=== PATIENT | female | born 1980 | race Caucasian/White ===

== ENCOUNTER → 2018-03-08 | Outpatient (CLI) | payer OTHER ==
[2018-03-08 10:12] LABS: ABSOLUTE EOSINOPHILS 0.3 thou/uL (0.0-0.7); ABSOLUTE LYMPHOCYTES 2.4 thou/uL (0.8-5.3); ABSOLUTE MONOCYTES 0.6 thou/uL (0.0-1.2); ABSOLUTE NEUTROPHILS 4.6 thou/uL (1.6-8.1); BASOPHILS 0.5 %; EOSINOPHILS 3.3 %; HEMATOCRIT 37.3 % (37.0-47.0); HEMOGLOBIN 12.6 gm/dL (12.0-15.0); LYMPHOCYTES 30.7 %; MCH 30.1 pg (26.0-34.0); MCHC 33.7 g/dL (28.0-37.0); MCV 89.3 fL (80.0-100.0); MONOCYTES 7.3 %; MPV 7.7 fl. (7.2-11.1); NUCLEATED RBCS 0 /100WBC; PLATELET COUNT* 242 thou/uL (150-400); POLYS 58.2 %; RBC 4.18 mil/uL (4.20-5.00); RDW-CV 12.6 % (10.5-14.5); WBC 7.9 thou/uL (4.0-11.0)
[2018-03-08 10:24] LABS: ALBUMIN 3.3 g/dL (3.4-5.0); CALCIUM 8.1 mg/dL (8.5-10.1); CREATININE 0.8 mg/dL (0.6-1.3); POTASSIUM 3.8 mmol/L (3.5-5.1); TOTAL BILIRUBIN 0.3 mg/dL (<0.1-1.0); TOTAL PROTEIN 6.9 g/dL (6.4-8.2)
[2018-03-08 10:25] LABS: AMP/METHAMP Negative (Negative); BARBITURATES Negative (Negative); BENZODIAZEPINES Negative (Negative); COCAINE Negative (Negative); METHADONE Negative (Negative); OPIATES POSITIVE (Negative); PCP Negative (Negative); THC Negative (Negative)
== END ==
LOC: M.MRI 08:06
DX: Z51.81 Encounter for therapeutic drug level monitoring (principal); G45.9 Transient cerebral ischemic attack, unspecified; R53.1 Weakness; G62.9 Polyneuropathy, unspecified

== ENCOUNTER → 2018-04-17 | Outpatient (CLI) | payer OTHER ==
[2018-04-17 08:04] LABS: PROTIME 9.8 Seconds (9.20-11.50)
== END ==
LOC: M.LAB 07:29
DX: G93.2 Benign intracranial hypertension (principal)

== ENCOUNTER 2018-09-14 12:43 | Emergency (ER) | payer OTHER ==
[~2018-09-14] VITALS: Ht 160 cm; Wt 124.7 kg
[2018-09-14] MEDS ORDERED: CYMBALTA60 MG PO (13:11)
[2018-09-14] MEDS ORDERED: CELEBREX 200 M200 M1 PO (13:11)
[2018-09-14] MEDS ORDERED: NORTRIPTYLINE H50 M3 PO (13:11)
[2018-09-14] MEDS ORDERED: SYNTHROID50 MCG PO (13:11)
[2018-09-14] MEDS ORDERED: LASIX 40 MG TAB40 M2 PO (13:12)
[2018-09-14] MEDS ORDERED: LYRICA 50 MG50 MG PO (13:12)
[2018-09-14] MEDS ORDERED: ZANAFLEX4 MG PO (13:12)
[2018-09-14] MEDS ORDERED: ZOFRAN ODT4 MG PO (13:13)
[2018-09-14] MEDS ORDERED: PROPRANOLOL 4040 MG PO (13:13)
[2018-09-14] MEDS ORDERED: ROBAXIN 750 MG750 M1 PO (13:13)
[2018-09-14] MEDS ORDERED: KLOR-CON 1010 MEQ PO (13:13)
[2018-09-14] MEDS ORDERED: PROVIGIL 200 M200 M1 PO (13:14)
[2018-09-14] MEDS ORDERED: HYDROCODON-ACE1 EA12 PO (13:15)
[2018-09-14] MEDS ORDERED: IMITREX 25 MG T25 M1 PO (13:16)
[2018-09-14 14:23] LABS: HEMATOCRIT 40.2 % (37.0-47.0); HEMOGLOBIN 13.2 gm/dL (12.0-15.0); MCH 29.1 pg (26.0-34.0); MCHC 32.7 g/dL (28.0-37.0); MPV 8.3 fl. (7.2-11.1); NUCLEATED RBCS 0 /100WBC; PLATELET COUNT* 238 thou/uL (150-400); RBC 4.52 mil/uL (4.20-5.00); RDW-CV 12.7 % (10.5-14.5); WBC 5.8 thou/uL (4.0-11.0)
[2018-09-14 14:32] LABS: ANION GAP 7 mmol/L (7-16); BUN 18 mg/dL (7-18); CALCIUM 8.1 mg/dL (8.5-10.1); CHLORIDE 101 mmol/L (98-107); CO2 29 mmol/L (21-32); CREATININE 0.7 mg/dL (0.6-1.3); GLUCOSE 102 mg/dL (70-99); POTASSIUM 3.9 mmol/L (3.5-5.1); SODIUM 137 mmol/L (136-145)
[2018-09-14 14:37] LABS: URINE BILIRUBIN NEGATIVE (Negative); URINE BLOOD NEGATIVE (Negative); URINE CLARITY CLEAR; URINE COLOR YELLOW; URINE GLUCOSE-RANDOM NEGATIVE (Negative); URINE KETONES NEGATIVE (Negative); URINE LEUKOCYTES-REFLEX TRACE (Negative); URINE NITRITE-REFLEX NEGATIVE (Negative); URINE PROTEIN NEGATIVE (Negative); URINE SPECIFIC GRAVITY >= 1.030 (1.005-1.030); URINE UROBILINOGEN 0.2 E.U./dl (0.2-1.0)
[2018-09-14 14:40] LABS: BACTERIA-REFLEX None Seen /HPF (None Seen); CASTS None Seen /LPF (None Seen); CRYSTALS None Seen /LPF (None Seen); MUCUS >6 Heavy strn/LPF (None Seen); SQUAMOUS 0-3 Few /LPF (0-3); URINE RBC None Seen /HPF (0-2); URINE WBC-REFLEX None Seen /HPF (0-5)
[2018-09-14 14:45] LABS: ABSOLUTE LYMPHOCYTES 0.4 thou/uL (0.8-5.3); ABSOLUTE MONOCYTES 0.1 thou/uL (0.0-1.2); ABSOLUTE NEUTROPHILS 5.3 thou/uL (1.6-8.1); PLATELET ESTIMATE ADEQUATE
[2018-09-14 14:47] LABS: ALBUMIN 3.4 g/dL (3.4-5.0); ALKALINE PHOSPHATASE 122 U/L (46-116); LIPASE 83 U/L (73-393); SGOT 36 U/L (15-37); SGPT 33 U/L (30-65); TOTAL BILIRUBIN 0.4 mg/dL (<0.1-1.0); TOTAL PROTEIN 7.2 g/dL (6.4-8.2); TROPONIN-I LEVEL <0.06 ng/mL (<0.06)
[2018-09-14 17:28] VITALS: BP 113/59
--- NOTE | 2018-09-16 15:32 | EKG ---
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: ROBERT : 1980 Requested By: Merlyn Silva Order Number: [id number] MD: Carrington Marcus Measurements Intervals [place] Rate: 83 P: 27 IA: 150 QRS: 18 QRSD: 94 T: -1 QT: 363 QTc: 427 Interpretive Statements Sinus rhythm Borderline T wave abnormalities No previous ECG available for comparison Electronically Signed On 09-16-2018 15:32:43 OVEN DRIER TENDER by Carrington Marcus [email or web address] <ELECTRONICALLY SIGNED> By: Carrington Marcus MD, [facility] 09/16/18 1532 1358 1358 Carrington Marcus MD, FACC /EPI
== END 2018-09-14 17:30 | disposition home or self-care (01) ==
LOC: M.ERS 12:43
PROVIDERS: Personal Emergency Response Attendant
DX: E86.0 Dehydration (principal); R20.2 Paresthesia of skin; M32.9 Systemic lupus erythematosus, unspecified; M06.9 Rheumatoid arthritis, unspecified; E03.9 Hypothyroidism, unspecified; I10 Essential (primary) hypertension; M79.7 Fibromyalgia; G89.29 Other chronic pain; F41.9 Anxiety disorder, unspecified; G43.909 Migraine, unspecified, not intractable, without status migrainosus; F32.9 Major depressive disorder, single episode, unspecified; Z88.1 Allergy status to other antibiotic agents; Z88.5 Allergy status to narcotic agent; Z86.73 Personal history of transient ischemic attack (TIA), and cerebral infarction without residual deficits

== ENCOUNTER 2020-05-21 11:55 | Emergency (ER) | payer OTHER ==
[~2020-05-21] VITALS: Ht 154.9 cm; Wt 127.0 kg
[~2020-05-21 11:55] MED LIST: CELEBREX 200 M200 M1 PO; CYMBALTA60 MG PO; HYDROCODON-ACE1 EA12 PO; IMITREX 25 MG T25 M1 PO; KLOR-CON 1010 MEQ PO; LASIX 40 MG TAB40 M2 PO; LYRICA 50 MG50 MG PO; NORTRIPTYLINE H50 M3 PO; PROPRANOLOL 4040 MG PO; PROVIGIL 200 M200 M1 PO; ROBAXIN 750 MG750 M1 PO; SYNTHROID50 MCG PO; ZANAFLEX4 MG PO; ZOFRAN ODT4 MG PO
[2020-05-21 13:00] VITALS: BP 163/91
== END 2020-05-21 13:00 | disposition home or self-care (01) ==
LOC: M.ERS 11:55
DX: J06.9 Acute upper respiratory infection, unspecified (principal); I10 Essential (primary) hypertension; E03.9 Hypothyroidism, unspecified; G43.909 Migraine, unspecified, not intractable, without status migrainosus; G89.29 Other chronic pain; M79.7 Fibromyalgia; M06.9 Rheumatoid arthritis, unspecified; F41.9 Anxiety disorder, unspecified; Z20.828 Contact with and (suspected) exposure to other viral communicable diseases; Z88.1 Allergy status to other antibiotic agents; Z88.6 Allergy status to analgesic agent

== ENCOUNTER 2020-10-14 14:03 | Emergency (ER) | payer OTHER ==
[~2020-10-14] VITALS: Ht 154.9 cm; Wt 124.7 kg
[2020-10-14 14:16] VITALS: BP 170/103
[2020-10-14 14:38] LABS: INFLUENZA A ANTIGEN Negative (Negative); INFLUENZA B ANTIGEN Negative (Negative)
== END 2020-10-14 15:25 | disposition home or self-care (01) ==
LOC: M.ERS 14:03
PROVIDERS: Nurse Practitioner Family
DX: B34.9 Viral infection, unspecified (principal); Z20.828 Contact with and (suspected) exposure to other viral communicable diseases; I10 Essential (primary) hypertension; E03.9 Hypothyroidism, unspecified; G89.29 Other chronic pain; G43.909 Migraine, unspecified, not intractable, without status migrainosus; Z88.5 Allergy status to narcotic agent; Z88.8 Allergy status to other drugs, medicaments and biological substances; Z79.899 Other long term (current) drug therapy; Z86.73 Personal history of transient ischemic attack (TIA), and cerebral infarction without residual deficits

== ENCOUNTER 2020-10-16 20:50 | Emergency (ER) | payer OTHER ==
[~2020-10-16] VITALS: Ht 154.9 cm; Wt 124.7 kg
[2020-10-16] MEDS ORDERED: ATIVAN1 M1 PO (21:06)
[2020-10-16 21:30] LABS: ABSOLUTE BASOPHILS 0.1 thou/uL (0.0-0.2); ABSOLUTE EOSINOPHILS 0.2 thou/uL (0.0-0.7); ABSOLUTE LYMPHOCYTES 2.8 thou/uL (0.8-5.3); ABSOLUTE MONOCYTES 0.8 thou/uL (0.0-1.2); ABSOLUTE NEUTROPHILS 10.2 thou/uL (1.6-8.1); BASOPHILS 0.5 %; EOSINOPHILS 1.6 %; HEMATOCRIT 42.1 % (37.0-47.0); HEMOGLOBIN 14.4 gm/dL (12.0-15.0); MCH 30.3 pg (26.0-34.0); MCHC 34.3 g/dL (28.0-37.0); MCV 88.5 fL (80.0-100.0); MONOCYTES 5.4 %; MPV 7.7 fl. (7.2-11.1); NUCLEATED RBCS 0 /100WBC; PLATELET COUNT* 324 thou/uL (150-400); POLYS 72.5 %; RBC 4.75 mil/uL (4.20-5.00); RDW-CV 12.7 % (10.5-14.5)
[2020-10-16 21:42] LABS: CALCIUM 10.1 mg/dL (8.5-10.1); CREATININE 1.2 mg/dL (0.6-1.3); POTASSIUM 3.7 mmol/L (3.5-5.1)
[2020-10-16 21:53] LABS: MAGNESIUM 1.9 mg/dL (1.8-2.4)
[2020-10-16] MEDS ORDERED: METFORMIN HCL500 MG PO (22:31)
[2020-10-16] MEDS ORDERED: INDERAL60 MG PO (22:31)
[2020-10-16 22:38] VITALS: BP 115/65
--- NOTE | 2020-10-17 09:42 | EKG ---
[place] [address] ELECTROCARDIOGRAM REPORT Name: POSEYDANIELE IRINA 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: : 1980 Requested By: Cyndy Boland Order Number: [id number] MD: Sabino Schaffer Measurements Intervals [place] Rate: 124 P: 51 DE: 125 QRS: 44 QRSD: 91 T: 30 QT: 447 QTc: 643 Interpretive Statements Sinus tachycardia nonspecific t wave changes Prolonged QT interval Compared to ECG 09/14/2018 13:58:43 Prolonged QT interval now present Sinus rhythm no longer present Electronically Signed On 10-17-2020 9:42:15 CONFLICTS ANALYST by Sabino Schaffer [email or web address] <ELECTRONICALLY SIGNED> By: Sabino Schaffer MD, FAC 10/17/20 0942 11 11 Sabino Schaffer MD, [facility] /EPI
== END 2020-10-16 22:39 | disposition home or self-care (01) ==
LOC: M.ERS 20:50
PROVIDERS: Emergency Medicine
DX: R00.0 Tachycardia, unspecified (principal); I10 Essential (primary) hypertension; R60.0 Localized edema; E03.9 Hypothyroidism, unspecified; M06.9 Rheumatoid arthritis, unspecified; F41.9 Anxiety disorder, unspecified; G43.909 Migraine, unspecified, not intractable, without status migrainosus; Z79.899 Other long term (current) drug therapy; Z88.5 Allergy status to narcotic agent; Z88.8 Allergy status to other drugs, medicaments and biological substances; Z86.73 Personal history of transient ischemic attack (TIA), and cerebral infarction without residual deficits

== ENCOUNTER 2020-12-05 19:48 | Emergency (ER) | payer OTHER ==
[~2020-12-05] VITALS: Ht 157.5 cm; Wt 124.7 kg
[~2020-12-05 19:48] MED LIST changes: +ATIVAN1 M1 PO; +INDERAL60 MG PO; +METFORMIN HCL500 MG PO
[2020-12-05 20:22] LABS: ABSOLUTE EOSINOPHILS 0.1 thou/uL (0.0-0.7); ABSOLUTE LYMPHOCYTES 3.1 thou/uL (0.8-5.3); ABSOLUTE MONOCYTES 0.8 thou/uL (0.0-1.2); ABSOLUTE NEUTROPHILS 10.2 thou/uL (1.6-8.1); BASOPHILS 0.3 %; EOSINOPHILS 0.7 %; HEMATOCRIT 43.5 % (37.0-47.0); HEMOGLOBIN 14.6 gm/dL (12.0-15.0); LYMPHOCYTES 21.8 %; MCH 29.7 pg (26.0-34.0); MCHC 33.6 g/dL (28.0-37.0); MCV 88.4 fL (80.0-100.0); MONOCYTES 5.9 %; MPV 7.9 fl. (7.2-11.1); NUCLEATED RBCS 0 /100WBC; PLATELET COUNT* 329 thou/uL (150-400); POLYS 71.3 %; RBC 4.92 mil/uL (4.20-5.00); RDW-CV 12.7 % (10.5-14.5); WBC 14.2 thou/uL (4.0-11.0)
[2020-12-05 20:33] LABS: CALCIUM 9.3 mg/dL (8.5-10.1); CREATININE 1.1 mg/dL (0.6-1.3); POTASSIUM 3.5 mmol/L (3.5-5.1)
[2020-12-05 20:37] LABS: APTT 24.7 Seconds (25.0-31.3); PROTIME 10.4 Seconds (9.20-11.50)
[2020-12-05 20:48] LABS: ALBUMIN 4.5 g/dL (3.4-5.0); TOTAL BILIRUBIN 0.3 mg/dL (<0.1-1.0); TOTAL PROTEIN 8.9 g/dL (6.4-8.2)
[2020-12-05 21:45] LABS: URINE BILIRUBIN NEGATIVE (Negative); URINE BLOOD NEGATIVE (Negative); URINE CLARITY CLEAR; URINE COLOR YELLOW; URINE GLUCOSE-RANDOM NEGATIVE (Negative); URINE KETONES 1+ (Negative); URINE LEUKOCYTES-REFLEX NEGATIVE (Negative); URINE NITRITE-REFLEX NEGATIVE (Negative); URINE PROTEIN NEGATIVE (Negative); URINE SPECIFIC GRAVITY 1.015 (1.005-1.030); URINE UROBILINOGEN 0.2 E.U./dl (0.2-1.0)
[2020-12-05 21:53] LABS: AMP/METHAMP Negative (Negative); BARBITURATES Negative (Negative); BENZODIAZEPINES Negative (Negative); COCAINE Negative (Negative); METHADONE Negative (Negative); OPIATES Negative (Negative); PCP Negative (Negative); THC Negative (Negative)
[2020-12-05] MEDS ORDERED: PREDNISONE 10 M10 M1 PO (22:14)
[2020-12-05 22:27] VITALS: BP 101/71
--- NOTE | 2020-12-07 13:46 | EKG ---
[place] [address] ELECTROCARDIOGRAM REPORT Name: TATYDANIELE IRINA Room: [facility]#: [id number] Admission: 12/05/20 Attend Phys: Discharge: 12/05/20 Date of : [birth year] Date of Service: 12/05/201952 Report #: [id number] THIS REPORT FOR: //name// [place] ED Test Date: 2020-12-05 Test Time: 19:53:33 Pat Name: DANIELE POSEY Department: Room: Gender: F Extension Agent: NM : 1980 Requested By: Merlyn Silva Order Number: [id number] MD: Bhupinder Hartman Measurements Intervals [place] Rate: 113 P: 44 DC: 138 QRS: 17 QRSD: 98 T: -44 QT: 328 QTc: 450 Interpretive Statements Sinus tachycardia Multiple premature complexes, narrow and wide QRS Borderline T abnormalities, inferior leads Compared to ECG 10/16/2020 21:12:44 Prolonged QT interval no longer present T-wave abnormality still present Electronically Signed On 12-07-2020 13:46:40 READING INTERVENTION TEACHER by Bhupinder Hartman [email or web address] <ELECTRONICALLY SIGNED> By: Bhupinder Hartman MD, FAC 12/07/20 1346 52 52 Bhupinder Hartman MD, FAC /EPI
== END 2020-12-05 22:27 | disposition home or self-care (01) ==
LOC: M.ERS 19:48
PROVIDERS: Personal Emergency Response Attendant
DX: R00.2 Palpitations (principal); M32.9 Systemic lupus erythematosus, unspecified; Z20.822 Contact with and (suspected) exposure to COVID-19; M06.9 Rheumatoid arthritis, unspecified; I10 Essential (primary) hypertension; E03.9 Hypothyroidism, unspecified; M79.7 Fibromyalgia; G89.29 Other chronic pain; G43.909 Migraine, unspecified, not intractable, without status migrainosus; Z88.5 Allergy status to narcotic agent; Z88.1 Allergy status to other antibiotic agents; Z79.899 Other long term (current) drug therapy

== ENCOUNTER 2021-07-24 20:32 | Emergency (ER) | payer OTHER ==
[~2021-07-24] VITALS: Ht 160 cm; Wt 127.0 kg
[~2021-07-24 20:32] MED LIST changes: +PREDNISONE 10 M10 M1 PO
[2021-07-24 21:25] LABS: ABSOLUTE EOSINOPHILS 0.2 thou/uL (0.0-0.7); ABSOLUTE LYMPHOCYTES 2.3 thou/uL (0.8-5.3); ABSOLUTE NEUTROPHILS 8.8 thou/uL (1.6-8.1); BASOPHILS 0.4 %; EOSINOPHILS 1.6 %; HEMATOCRIT 39.9 % (37.0-47.0); HEMOGLOBIN 13.7 gm/dL (12.0-15.0); LYMPHOCYTES 18.5 %; MCH 30.1 pg (26.0-34.0); MCHC 34.2 g/dL (28.0-37.0); MCV 87.9 fL (80.0-100.0); MONOCYTES 8.2 %; MPV 7.9 fl. (7.2-11.1); NUCLEATED RBCS 0 /100WBC; PLATELET COUNT* 312 thou/uL (150-400); POLYS 71.3 %; RBC 4.54 mil/uL (4.20-5.00); RDW-CV 13.2 % (10.5-14.5); WBC 12.4 thou/uL (4.0-11.0)
[2021-07-24 21:28] LABS: CALCIUM 9.3 mg/dL (8.5-10.1); CREATININE 1.4 mg/dL (0.6-1.3); POTASSIUM 3.7 mmol/L (3.5-5.1)
[2021-07-24 21:38] LABS: ALBUMIN 4.2 g/dL (3.4-5.0); TOTAL BILIRUBIN 0.4 mg/dL (<0.1-1.0); TOTAL PROTEIN 8.2 g/dL (6.4-8.2)
[2021-07-24] MEDS ORDERED: TESSALON PERLE100 MG PO (22:42)
[2021-07-24] MEDS ORDERED: VENTOLIN HFA 1818 GM INH (22:42)
[2021-07-24] MEDS ORDERED: DOXYCYCLINE 10100 MG PO (22:42)
[2021-07-24 23:22] VITALS: BP 154/94
--- NOTE | 2021-07-25 10:25 | EKG ---
[place] [address] ELECTROCARDIOGRAM REPORT Name: DANIELE HOPSON Room: [facility]#: [id number] Admission: 07/24/21 Attend Phys: Discharge: 07/24/21 Date of : 76 Date of Service: 07/24/212055 Report #: [id number] THIS REPORT FOR: //name// [facility] ED Test Date: 2021-07-24 Test Time: 20:56:09 Pat Name: DANIELE HOPSON Department: Room: Gender: F Host Coordinator: BXIONG : 1980 Requested By: Zaina Prakash Order Number: [id number] MD: Carrington Marcus Measurements Intervals [place] Rate: 87 P: 49 FL: 157 QRS: 25 QRSD: 106 T: 16 QT: 390 QTc: 470 Interpretive Statements Sinus rhythm Compared to ECG 12/05/2020 19:53:33 Sinus tachycardia no longer present T-wave abnormality no longer present Electronically Signed On 07-25-2021 10:25:48 CDT by Carrington Marcus [email or web address] <ELECTRONICALLY SIGNED> By: Carrington Marcus MD, FACC 07/25/21 1025 55 55 Carrington Marcus MD, FAC /EPI
== END 2021-07-24 23:23 | disposition home or self-care (01) ==
LOC: M.ERS 20:32
PROVIDERS: Nurse Practitioner Family
DX: J06.9 Acute upper respiratory infection, unspecified (principal); Z20.822 Contact with and (suspected) exposure to COVID-19; S80.861A Insect bite (nonvenomous), right lower leg, initial encounter; L08.9 Local infection of the skin and subcutaneous tissue, unspecified; I10 Essential (primary) hypertension; E03.9 Hypothyroidism, unspecified; M79.7 Fibromyalgia; G89.29 Other chronic pain; G43.909 Migraine, unspecified, not intractable, without status migrainosus; Z86.73 Personal history of transient ischemic attack (TIA), and cerebral infarction without residual deficits; Z88.5 Allergy status to narcotic agent; Z88.1 Allergy status to other antibiotic agents; W57.XXXA Bitten or stung by nonvenomous insect and other nonvenomous arthropods, initial encounter; Y93.89 Activity, other specified; Y92.89 Other specified places as the place of occurrence of the external cause; Y99.8 Other external cause status

== ENCOUNTER 2021-11-06 18:10 | Emergency (ER) | payer OTHER ==
[~2021-11-06] VITALS: Ht 160 cm; Wt 125.2 kg
[~2021-11-06 18:10] MED LIST changes: +DOXYCYCLINE 10100 MG PO; +TESSALON PERLE100 MG PO; +VENTOLIN HFA 1818 GM INH
[2021-11-06] MEDS ORDERED: TORSEMIDE20 MG PO (18:25)
[2021-11-06 19:05] LABS: NUCLEATED RBCS 0 /100WBC
[2021-11-06 19:08] LABS: HEMATOCRIT 43.7 % (37.0-47.0); HEMOGLOBIN 14.8 gm/dL (12.0-15.0); MCH 29.6 pg (26.0-34.0); MCHC 33.8 g/dL (28.0-37.0); MCV 87.5 fL (80.0-100.0); MPV 8.2 fl. (7.2-11.1); PLATELET COUNT* 309 thou/uL (150-400); RBC 4.99 mil/uL (4.20-5.00); RDW-CV 12.8 % (10.5-14.5); WBC 11.1 thou/uL (4.0-11.0)
[2021-11-06 19:31] LABS: ABSOLUTE LYMPHOCYTES 1.7 thou/uL (0.8-5.3); ABSOLUTE MONOCYTES 1.3 thou/uL (0.0-1.2); ABSOLUTE NEUTROPHILS 8.1 thou/uL (1.6-8.1); PLATELET ESTIMATE ADEQUATE
[2021-11-06] MEDS ORDERED: DECADRON6 MG PO (19:49)
[2021-11-06 20:10] LABS: CALCIUM 8.9 mg/dL (8.5-10.1); CREATININE 1.4 mg/dL (0.6-1.3); POTASSIUM 4.6 mmol/L (3.5-5.1)
[2021-11-06 20:15] LABS: MAGNESIUM 2.2 mg/dL (1.8-2.4); TOTAL BILIRUBIN 0.4 mg/dL (<0.1-1.0); TOTAL PROTEIN 8.4 g/dL (6.4-8.2)
[2021-11-06 20:21] VITALS: BP 152/87
--- NOTE | 2021-11-07 11:18 | EKG ---
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 11/07/21 1117 1820 1820 Sabino Schaffer MD, [facility] /EPI
== END 2021-11-06 20:22 | disposition home or self-care (01) ==
LOC: M.ERS 18:10
PROVIDERS: Student in an Organized Health Care Education/Training Program
DX: U07.1 COVID-19 (principal); I10 Essential (primary) hypertension; M79.7 Fibromyalgia; M06.9 Rheumatoid arthritis, unspecified; E11.40 Type 2 diabetes mellitus with diabetic neuropathy, unspecified; F41.9 Anxiety disorder, unspecified; G43.909 Migraine, unspecified, not intractable, without status migrainosus; Z79.2 Long term (current) use of antibiotics; Z79.899 Other long term (current) drug therapy; Z88.5 Allergy status to narcotic agent; Z88.8 Allergy status to other drugs, medicaments and biological substances